=== PATIENT | female | born 2000 | race Caucasian/White ===

== ENCOUNTER 2024-08-27 11:30 | Outpatient (RCR) | payer OTHER, SELFPAY ==
--- NOTE | 2024-07-29 09:52 | HP.PTEVAL_ITS ---
Patient's Visit Information Visit Information Visit Information: GEORGETTE LIM is a 23 year old F referred to Physical Therapy by GINO Pablo with a diagnosis of Lumbar Radiculopathy. Date of Evaluation: 07/29/24 Physical Therapist: Donna Yun DPT Visit Plan Frequency: 2x /Week Duration: 4 Weeks Plan: Core strength/stabilization- avoid dural s/s down the hips and LE- started with TA contraction with marching and progress as able to maintain with exercises. Avoid Flexion Based Exercises. HEP Given IE: Postural education, prone hip extn, prone prop, TA contraction, march with TA Subjective Subjective: 2 months ago- she was working out and did something to her back and could not move- went to chiro- got better-in about 2 weeks- started working out light again after 2 weeks- but its not 100% better. Its now about 80% if she is not doing what she is not doing everything she wants to be doing. Initial injury: in the gym she was doing a body weight squat and she felt a pop and it never went away- the pain was in the left lower side- the pain did radiate across the back and into both hips- chiro did adjustments. Light work outs- she is doing body weight stuff- she does [employer]- she wants to do LIFFT 4 but is holding off and is just doing a bodyweight one- she tried jumping so she modified and did less impact. Her symptoms now are sharp pains and still shooting to the hips and down the leg. The pain is located in the tailbone area and radiates out- The left leg only- radiates to the ankle and comes and goes. Radiates when she sits. Worst: 2/10 Agg: sitting, impact. Best: 0/10 Eases: laying on her side. The leg symptoms is pain not N/T. No loss or change in bowel of bladder. She has had x-rays but no MRI. Sleep: not disturbed. She take Ibuprofen when its terrible but no other medications which does help. She is not still seeing chiro. 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 Normally she is pretty active. She does feel like its still getting better. PMHx: none Meds: fiber Objective Objective: Posture: forward head, rounded shoulders- can correct with verbal cues Gait: no deviation noted- good arm swing and trunk rotation ROM: Lumbar: WNL no pain noted, LE: WNL HR/TR: able without UE A SLS: 30 sec without LOB or hip drop Reflex: WNL to patellar bilateral Sensation: WNL to gross touch Palpation: tender to lumbar paraspinals bilateral Left>right Strength: Core: fair minus- unable to hold TA with SLR, Hip: 4-/5 throughout, Knee: 5/5, Ankle: 5/5 Flex: HS: moderate, Gastroc: mild Special Test: Dural Signs: Negative, Slump: negative, SLR: negative, SHERYL: negative Balance/Special Test Scores Oswestry Low Back Score: 4 Goals Goal 1:: Patient will be I with HEP and progression Goal Time Frame: 4-6 Weeks Goal 2:: Patient will report 1 week with no radicular s.s Goal Time Frame: 4-6 Weeks Goal 3:: Patient will maintiain proper posture t.o tx session to demo increased core s/s Goal Time Frame: 4-6 Weeks Goal 4:: Patient will report 80% improvement Goal Time Frame: 4-6 Weeks Rehabilitation Potential Physical Therapy Diagnosis: Patient presents with decreased core st rength/stabilization, LE strength, flex and muscular endurance leading to poor posture and increased pain with ADL's and sports related activities. Rehabilitation Potential: Good Anticipated Interventions Patient/Client Instruction: Educate patient on: Benefits of Fitness Program Therapeutic Exercise to Include: Strength training, Endurance training, Balance training, Coordination, Agility training, Body mechanics, Postural training, Flexibilty training, Neuromotor development, Dynamic Lumbar Stabilization and Scapular Strength/Stabilization Manual Therapy Techniques to Include: Soft tissue mobilization TENS: Yes Cryotherapy (ice pack, ice massage): Yes Thermo therapy (hot pack): Yes Ultrasound (thermal/non thermal): Yes Text: Thank you for the opportunity to evaluate your patient. For Medicare and Medicare HMO plans, please review the plan of care and approve it. It will need to be FAXED BACK to us at [phone] for Medicare purposes. For Medicare only, by signing this I certify the plan of care. Please let me know if there are questions or concerns regarding this plan of care. Physician Sign ature: Date:
--- NOTE | 2024-08-27 15:13 | HP.PTDCSUM ---
Discharge Summary D/C summary: It has been my pleasure to treat GEORGETTE LIM referred by GINO Pablo, with the diagnosis of Lumbar Radiculopathy for a total of 9 visit(s). Discharge Date: 08/27/24 Please see the following information for a summary of their discharge status. Subjective Subjective: Pt. reports overall doing 95% better overall. Pt. reports no pain currently. She does have some pain if she sits to long. Pain only to lumbar spine, no distal LE. Pain LB: Pain Intensity (Out of 10): 0 L LE: Pain Intensity (Out of 10): 0 Overall Improvement % Improvement: 95 Objective Objective/Function: ROM: pt. has full ROM of her lumbar spine and hips without issues MMT: Pt. has full strength without increase in symptoms. - SLR and - slump testing. Pt. reports being able to complete all work related activities without increase in symptoms. Pt. is doing well, no issues. She is I with her HEP. Pt. to be dc from PT at this point in time. Goals Goal 1:: Patient will be I with HEP and progression Goal Progress: Goal Met Goal 2:: Patient will report 1 week with no radicular s.s Goal Progress: Goal Met Goal 3:: Patient will maintiain proper posture t.o tx session to demo increased core s/s Goal Progress: Goal Met Goal 4:: Patient will report 80% improvement Goal Progress: Goal Met Plan Plan: Pt. to be DC from PT at this point in time. D/C Information d/c sentence: If there are questions or concerns regarding this patient's physical therapy, please feel free to call me at [phone]. Thank you for the referral of this patient. Sincerely, Dontae Mayorga Sipos, DPT Balance/Gait/Functional tests Balance/Special Test Scores Oswestry Low Back Score: 1 Improvement % Improvement: 95
== END 2024-08-27 19:00 | disposition home or self-care (01) ==
LOC: PT 11:30
PROVIDERS: Referring Provider Student in an Organized Health Care Education/Training Program; Visit Provider Student in an Organized Health Care Education/Training Program
DX: M54.16 Radiculopathy, lumbar region (principal)
CPT/HCPCS: 97110; 97162; 97530